=== PATIENT | female | born 1960 | race Caucasian/White ===

== ENCOUNTER → 2024-02-08 19:25 | Outpatient (REF) | payer OTHER, SELFPAY | LOC: WDC 19:25 | PROVIDERS: ATTENDING PHYSICIAN Physician Assistant Medical | DX: Z12.31 Encounter for screening mammogram for malignant neoplasm of breast (principal) | CPT/HCPCS: 77063; 77067 ==

== ENCOUNTER → 2024-02-17 08:47 | Outpatient (REF) | payer OTHER, SELFPAY | LOC: WDC 08:47 | PROVIDERS: ATTENDING PHYSICIAN Physician Assistant Medical | DX: R92.8 Other abnormal and inconclusive findings on diagnostic imaging of breast (principal) | CPT/HCPCS: 76642 ==

== ENCOUNTER 2024-09-27 14:41 | Emergency (ER) | payer OTHER, SELFPAY ==
[2024-09-27 14:56] VITALS: BP 157/79
--- NOTE | 2024-09-27 15:02 | ED.GENMED ---
ED Provider Triage
<Kassandra Alvarado PA-C - Last Filed: 09/27/24 15:09>
-
Patient seen by provider in Triage?: Seen in Triage
Attestation: A medical screening examination has been initiated by a qualified medical provider. Based on the assessment performed at this time, it has been determined that an emergent medical condition may exist and the patient has been informed
that further medical evaluation and possible additional diagnostic testing may be needed.
HPI: 64yoF here with SOB, cough, congestion, wheezing x 1 month. Significant other currently sick. Given DuoNeb at PCP's office without relief. Sent here for eval.
GENERAL: Alert , in no apparent distress
EYE: No visual abnormalities.
NECK: Trachea midline
ENT: No visible abnormalities.
LUNGS: No acute respiratory distress
NEUROLOGICAL: Alert and oriented
SKIN: Skin intact. No visible changes.
MUSCULOSKELETAL: Moving extremities normally
PSYCH: Normal and appropriate interaction.
This is a medical evaluation conducted in person to initiate diagnostic evaluation and provide initial therapeutics. Please see further documentation by the treating clinician.
Cardiac labs, EKG, COVID/flu swab, and CXR ordered.
History of Present Illness
<Kassandra Alvarado PA-C - Last Filed: 09/27/24 15:09>
General
Chief Complaint: Breathing Problem
Time Seen by Provider: 09/27/24 15:56
<Tanner Espitia DO - Last Filed: 09/27/24 19:37>
General
Source: patient
History of Present Illness
History of Present Illness:
64-year-old female presents to the emergency room complaining of cough, shortness of breath. Patient's been feeling unwell for the past week or so. She has been taking multiple vitamins and some [id number] cold remedies without improvement.
She went to her primary care doctor office today where they noted she had some wheezing. She was given a breathing treatment but did not have adequate improvement prompting her referral to the emergency room. Patient states she has not had a fever
throughout this illness. She has been monitoring her pulse ox at home and it has been normal. She denies any history of asthma or COPD.
Phy Exam
<Tanner Espitia DO - Last Filed: 09/27/24 19:37>
Physical Exam
Physical Exam:
General: Awake, Alert, Oriented X3. No acute distress.
Vitals: unremarkable
Head: Atraumatic
Eyes: Pupils equal, EOMI
Throat: Airway intact, no exudates
Neck: Trachea midline
Lungs: Adequate aeration bilaterally, some expiratory wheezing
Heart: Regular rate, no murmurs
Abd: Soft, Nontender, No pulsatile mass
Neuro: Nonfocal
Skin: Warm, dry, no rash
Extremities: pulses equal b/l, no edema
Scores
<Tanner Espitia DO - Last Filed: 09/27/24 19:37>
Heart Failure Risk
Heart Failure Risk Score: Not Applicable
Course
<Kassandra Alvarado PA-C - Last Filed: 09/27/24 15:09>
Orders/Labs/Results
Orders:
Orders
09/27/24 15:01
Electrocardiogram (*1) Urgent
Reason for Study: Shortness of Breath
EKG- Treatment ONCE
CXR2 [CR Chest - 2 Views ] Urgent
Comment:
Reason For Exam: sob
09/27/24 15:15
COVID-19 Antigen Urgent
Source: Nasal Swab
Complete Blood Count/With Diff Urgent
Comprehensive Metabolic Panel Urgent
NT-proBNP Urgent
Troponin I Urgent
Influenza A+B Rapid Molecular Urgent
TOM Source: Nasal Swab
Specimen Description:
09/27/24 16:08
Ipratropium/Albuterol Sulfate [Duoneb] 3 ml INH R NOW STA
09/27/24 17:34
Prednisone [Deltasone] 60 mg PO NOW STA
09/27/24 17:36
Ipratropium/Albuterol Sulfate [Duoneb] 3 ml INH R NOW STA
Abnormal Lab Results
09/27/24
15:15
Immature Gran % 0.7 H %
(0-0.5)
Glucose 125 H mg/dl
(70-99)
ALT 39 H U/L
(0-35)
09/27/24 15:15
09/27/24 15:15
Vital Signs
Initial and Last Documented VS:
Initial Vital Signs
Temp Pulse Resp BP Pulse Ox
98.8 F 76 16 157/79 98
09/27/24 14:56 09/27/24 14:56 09/27/24 14:56 09/27/24 14:56 09/27/24 14:56
Last Documented Vital Signs
Temp Pulse Resp BP Pulse Ox
98.8 F 76 16 157/79 98
09/27/24 14:56 09/27/24 14:56 09/27/24 14:56 09/27/24 14:56 09/27/24 14:56
<Tanner H. Nupur, DO - Last Filed: 09/27/24 19:37>
Orders/Labs/Results
Orders:
Orders
09/27/24 15:01
Electrocardiogram (*1) Urgent
Reason for Study: Shortness of Breath
EKG- Treatment ONCE
CXR2 [CR Chest - 2 Views ] Urgent
Comment:
Reason For Exam: sob
09/27/24 15:15
COVID-19 Antigen Urgent
Source: Nasal Swab
Complete Blood Count/With Diff Urgent
Comprehensive Metabolic Panel Urgent
NT-proBNP Urgent
Troponin I Urgent
Influenza A+B Rapid Molecular Urgent
TOM Source: Nasal Swab
Specimen Description:
09/27/24 16:08
Ipratropium/Albuterol Sulfate [Duoneb] 3 ml INH R NOW STA
09/27/24 17:34
Prednisone [Deltasone] 60 mg PO NOW STA
09/27/24 17:36
Ipratropium/Albuterol Sulfate [Duoneb] 3 ml INH R NOW STA
Abnormal Lab Results
09/27/24
15:15
Immature Gran % 0.7 H %
(0-0.5)
Glucose 125 H mg/dl
(70-99)
ALT 39 H U/L
(0-35)
09/27/24 15:15
09/27/24 15:15
Vital Signs
Initial and Last Documented VS:
Initial Vital Signs
Temp Pulse Resp BP Pulse Ox
98.8 F 76 16 157/79 98
09/27/24 14:56 09/27/24 14:56 09/27/24 14:56 09/27/24 14:56 09/27/24 14:56
Last Documented Vital Signs
Temp Pulse Resp BP Pulse Ox
98.8 F 76 16 157/79 98
09/27/24 14:56 09/27/24 14:56 09/27/24 14:56 09/27/24 14:56 09/27/24 14:56
<Tanner Espitia, DO - Last Filed: 09/27/24 19:37>
MDM/Problems Addressed
Differential Diagnosis Includes:
Acute viral bronchitis, acute bacterial bronchitis, pneumonia,
MDM/Problems Addressed:
Patient presents with some wheezing and increased work of breathing. She felt better after 2 nebs. Chest x-ray is unremarkable. She will be discharged with a short course of steroids, albuterol inhaler and a course of doxycycline for potential
bacterial bronchitis.
<Tanner Espitia, DO - Last Filed: 09/27/24 19:37>
*Radiology
Radiology exam reviewed: preliminary read by ED provider (No acute abnormalities on my review of the patient's chest x-ray)
*Pulse Oximetry
Patient hypoxic: no
*EKG
Interpreted by ED Provider?: Yes
Heart Rate: 77
Rate: normal
Rhythm: sinus
[place]: normal axis
Interval: first degree heart block
QRS Pattern: normal QRS
Ischemia: no ischemia
*Clip Coater Interpretation
Rate: normal
Interpretation: normal
Rhythm: sinus
*Critical Care Note
Total Time (30-74mins, 75-104mins- exclusive of procedures): Not Applicable
ED Attending Note
<Kassandra Alvarado PA-C - Last Filed: 09/27/24 15:09>
-
Portions of this chart may have been created with voice recognition software.� Occasional wrong word or��sound alike� substitutions may have occurred due to the inherent limitations of voice recognition software.
Discharge Plan
Departure
Patient Disposition: Home (Routine Discharge)
Date of Disposition: 09/27/24
Time of Disposition: 17:37
Patient with high blood pressure during this ER visit?: Yes
Condition: Good
Discharge Problem:
Shortness of breath, Acute bronchitis, Wheezing
Instructions: Acute Bronchitis, Adult (DC), BLOOD PRESSURE
Prescriptions:
New
doxycycline hyclate 100 mg tablet
100 mg PO BID Qty: 14 0RF
prednisone 20 mg tablet
40 mg PO DAILY Qty: 8 0RF
albuterol sulfate 90 mcg/actuation HFA aerosol inhaler
2 puff inhalation Q4H PRN (Reason: shortness of breath or wheezing) Qty: 8.5 0RF
Referrals:
Zuri Moseley PA-C [Family Provider] -
Interventions
Interventions:
*Risk Screen - Suicide Last Done: 09/27/24 14:56
*Neglect/Abuse Screening Last Done: 09/27/24 14:56
ED- Fall Risk Assessment Last Done: 09/27/24 18:17
*Nursing Disposition Last Done: 09/27/24 18:17
ED- Cardiac Assessment Last Done: 09/27/24 17:05
ED- Pulmonary Assessment Last Done: 09/27/24 17:05
Discharge Date and Time
Discharge Date/Time: 09/27/24 18:18
Print Language: CITIZ[place]
[2024-09-27 15:40] LABS: Hemoglobin 13.1 g/dL (12.0-16.0); Red Blood Cell Count 4.33 10^6/uL (4.20-5.40); White Blood Cell Count 5.5 10^3/uL (4.8-10.8)
[2024-09-27 15:41] LABS: % Basophils 0.5 % (0-2); % Eosinophils 2.2 % (0-6); % Immature Granulocytes 0.7 % (0-0.5); % Lymphocytes 35.8 % (20.5-51.1); % Monocytes 7.2 % (1.7-9.3); % Neutrophils 53.6 % (42.2-75.2); ALT (SGPT) 39 U/L (0-35); AST (SGOT) 30 U/L (14-36); Absolute Eosinophils 0.1 10^3/uL (0-0.7); Absolute Monocytes 0.4 10^3/uL (0.1-0.6); Albumin 4.5 g/dl (3.5-5.0); Alkaline Phosphatase 63 U/L (38-126); Blood Urea Nitrogen 12 mg/dl (7-17); Calcium 9.7 mg/dl (8.4-10.2); Carbon Dioxide 29 mmol/L (22-30); Chloride 101 mmol/L (98-107); Glucose 125 mg/dl (70-99); Hematocrit 38.8 % (37.0-47.0); Mean Corp Hgb Conc. 33.8 g/dL (33.0-37.0); Mean Corpuscular Hgb 30.3 pg (27.0-31.0); Mean Corpuscular Volume 89.6 fL (81.0-99.0); Mean Platelet Volume 9.1 fL (7.4-10.4); Nucleated Red Blood Cells % 0 %; Platelet Count 310 10^3/uL (130-400); Potassium 4.2 mmol/L (3.5-5.1); Red Cell Dist. Width 12.9 % (11.5-14.5); Sodium 139 mmol/L (135-145); Total Bilirubin 0.5 mg/dl (0.2-1.3); Total Protein 7.1 g/dl (6.3-8.2); eGFR > 60.00
[2024-09-27 15:53] LABS: NT-proBNP < 20.0 pg/ml; Troponin I < 0.012 ng/ml
[2024-09-27 15:56] LABS: COVID-19 Antigen Negative (Negative)
[2024-09-27] MEDS: DUONEB 3 ML INH ×2 (16:21→17:39)
[2024-09-27] MEDS: DELTASONE 60 MG PO (17:39)
== END 2024-09-27 18:18 | disposition home or self-care (01) ==
LOC: EMR 14:41
PROVIDERS: Emergency Medicine; Physician Assistant; EMERGENCY PHYSICIAN Emergency Medicine; FAMILY PHYSICIAN Physician Assistant Medical
DX: J20.9 Acute bronchitis, unspecified (principal); R06.2 Wheezing; R06.02 Shortness of breath; Z11.52 Encounter for screening for COVID-19; R03.0 Elevated blood-pressure reading, without diagnosis of hypertension; Z88.6 Allergy status to analgesic agent
CPT/HCPCS: 99284; 94640 ×2; 71046; 80053; 83880; 84484; 85025; 87502; 87811; 93005

== ENCOUNTER → 2025-02-13 17:45 | Outpatient (REF) | payer MEDICARE, SELFPAY | LOC: WDC 17:45 | PROVIDERS: ATTENDING PHYSICIAN Physician Assistant Medical | DX: Z12.31 Encounter for screening mammogram for malignant neoplasm of breast (principal) | CPT/HCPCS: 77063; 77067 ==